=== PATIENT | female | born 1990 | race African-American/Black ===

== ENCOUNTER 2022-08-13 04:09 | Day surgery (SDC) | payer OTHER ==
[2022-08-10 14:55] VITALS: BMI 28.8
[2022-08-13 09:18] LABS: BASO % 0.3 % (0-2.0); EOS % 2.9 % (0-4.5); HEMATOCRIT 34.6 % (32.4-45.2); LYMPH % 22.5 % (8-40); MCH 30.8 pg (25.7-33.7); MCHC 34.9 g/dl (32.0-36.0); MEAN CELL VOLUME 88.2 fl (80-96); MEAN PLT VOLUME 8.3 fl (7.5-11.1); MONO % 5.6 % (3.8-10.2); NEUT % 68.7 % (42.8-82.8); PLATELET COUNT 260 10^3/uL (134-434); RBC 3.92 M/mm3 (3.60-5.2); RDW 13.9 % (11.6-15.6); WHITE BLOOD COUNT 9.4 K/mm3 (4.0-10.0)
[2022-08-13 09:26] LABS: POTASSIUM 4.1 mmol/L (3.5-5.1)
[2022-08-13 09:28] LABS: CALCIUM 8.7 mg/dL (8.5-10.1)
[2022-08-13 09:29] LABS: ALBUMIN 3.2 g/dl (3.4-5.0)
[2022-08-13 09:32] LABS: CREATININE 0.5 mg/dL (0.55-1.3)
[2022-08-13 09:33] LABS: BILIRUBIN,TOTAL 0.2 mg/dL (0.2-1); TOT PROT 6.8 g/dl (6.4-8.2)
[2022-08-13] MEDS ORDERED: PROPOFOL 20 ML ONE (10:27)
[2022-08-13] MEDS ORDERED: MIDAZOLAM HCL 2 MG/2 ML SINGLE DOSE VIAL ONE (10:28)
[2022-08-13] MEDS ORDERED: DEXAMETHASONE SOD PHOSPHATE 4 MG/1 ML VIAL ONE (10:45)
[2022-08-13] MEDS ORDERED: ONDANSETRON 4 MG/2 ML VIAL ONE ×2 (10:45→12:02)
[2022-08-13] MEDS ORDERED: OXYTOCIN 10 UNITS/ML VIAL ONE ×2 (11:35→12:01)
[2022-08-13] MEDS ORDERED: ONDANSETRON 4 MG/2 ML VIAL IVPUSH PRN (12:13)
[2022-08-13] MEDS ORDERED: oxyCODONE HCL 5 MG TABLET PO PRN (12:13)
[2022-08-13] MEDS ORDERED: LACTATED RINGERS SOLUTION 1,000 ML IV SCH (12:15)
[2022-08-13 14:04] VITALS: RESP 20; TEMP 96.9
[2022-08-13 14:29] VITALS: BP 111/83; PULSE 82
== END 2022-08-13 14:30 | disposition home or self-care (01) ==
LOC: JASU-SURG 04:09
PROVIDERS: ATTEND Obstetrics & Gynecology Maternal & Fetal Medicine
PROC: 10A07Z6 Abortion of Products of Conception, Vacuum, Via Natural or Artificial Opening (ICD-10-PCS; principal; 2022-08-13 11:00)
DX: Z33.2 Encounter for elective termination of pregnancy (principal); O02.89 Other abnormal products of conception; Z3A.18 18 weeks gestation of pregnancy
CPT/HCPCS: 36415; 80053; 81025; 85025; 86850; 86900; 86901; 88304-TC; 94760